=== PATIENT | female | born 1970 | race Two or more races ===

== ENCOUNTER 2019-03-23 21:45 | Emergency (ER) | payer OTHER ==
[~2019-03-23] VITALS: Ht 139.7 cm; Wt 77.1 kg
[~2019-03-23 21:45] MED LIST: IBUPROFEN600 MG ORAL; TYLENOL650 MG/20. ORAL
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
[2019-03-23] MEDS ORDERED: HYDROcodone/Acetamin 5/325 tab ORAL ONE (22:15)
--- NOTE | 2019-03-23 22:43 | Diagnostic Imaging Report ---
Indication: Trauma, facial pain Technique: CT maxillofacial was performed utilizing automated exposure control without intravenous contrast material. Axial and coronal images were generated. CT dose: Total DLP 537.1 mGycm; CTDI vol 25.1 mGy Comparison: None Findings: No acute fracture is identified. The mandible, midface and nasal bones are intact. The orbits are unremarkable. Mastoid air cells are clear. There are frothy secretions in the left sphenoid sinus. There is moderate right and mild left maxillary sinus mucosal thickening. There is a left facing nasal bone spur. The nasal septum is midline. Visualized intracranial compartment is unremarkable. Impression: No acute maxillofacial fracture or dislocation. These findings are concordant with the [facility] preliminary report. The CT scanner at [facility] is accredited by the [employer] and the scans are performed using protocols designed to limit radiation exposure to as low as reasonably achievable to attain images of sufficient resolution adequate for diagnostic evaluation.
[2019-03-23] MEDS ORDERED: IBUPROFEN600 MG ORAL (22:56)
[2019-03-23 23:00] VITALS: BP 120/75
== END 2019-03-23 23:00 | disposition home or self-care (01) ==
LOC: EMR 22:10
DX: S00.83XA Contusion of other part of head, initial encounter (principal); W50.0XXA Accidental hit or strike by another person, initial encounter; Y92.129 Unspecified place in nursing home as the place of occurrence of the external cause; Y99.0 Civilian activity done for income or pay
CPT/HCPCS: 70486; 99284